=== PATIENT | male | born 1970 | race Caucasian/White ===

== ENCOUNTER 2024-11-26 11:54 | Emergency (ER) | payer OTHER, SELFPAY ==
[2024-11-26 12:19] VITALS: BP 148/91; PULSE 73; RESP 14; TEMP 36.5; O2SAT 96; BMI 34.9
[2024-11-26 12:42] LABS: Appearance Urine Cloudy (Clear); Bilirubin Urine Negative (Negative); Blood Urine Negative (Negative); Color Urine Dark yellow (Yellow); Glucose Urine Negative (Negative); Ketones Urine 1+ (Negative); Leukocyte Esterase Urine Negative (Negative); Nitrite Urine Negative (Negative); Protein Urine Negative (Negative); Specific Gravity Urine >= 1.030 (1.000-1.030); Urobilinogen Urine 0.2 (0.2-1.0)
--- NOTE | 2024-11-26 12:54 | ED.GENADULT ---
HPI - General Adult General Chief complaint: Urogenital Problems, Male Stated complaint: Blood in urine Time Seen by Provider: 11/26/24 12:11 Source: patient Mode of arrival: ambulatory Limitations: no limitations History of Present Illness HPI narrative: 54-year-old male coming in today concerned about blood in his urine. Patient states that he noticed it approximately 3 days ago, spots of red in his urine. He states that for several months he has had a mild discomfort in the suprapubic region. He denies any dysuria, increased urinary frequency or urgency. He denies difficulty starting or stopping his stream. Denies any systemic symptoms such as fevers or chills. Past medical history significant for obesity, hyperlipidemia, psoriasis, hypertension. No family history of bladder cancer or kidney cancer. States that father had prostate cancer when he was 63. Related Data Home Medications ?Medication ?Instructions ?Recorded ?Confirmed adalimumab-bwwd 40 mg/0.8 mL 40 mg subcut Q2W 11/26/24 11/26/24 subcutaneous auto-injector atorvastatin 10 mg tablet 10 mg PO QPM 11/26/24 11/26/24 clobetasol 0.05 % topical cream 1 applic topical BID 11/26/24 11/26/24 losartan 100 mg tablet (Cozaar) 100 mg PO DAILY 11/26/24 11/26/24 metformin 500 mg tablet 1,000 mg PO DAILY 11/26/24 11/26/24 Allergies Allergy/AdvReac Type Severity Reaction Status Date / Time No Known Drug Allergies Allergy Verified 11/26/24 12:15 Review of Systems Status of ROS: Reports: 10 or more systems reviewed and unremarkable except as noted in History and below PFSH PFS Social History Smoking Status: Never smoker Do you use any of these nicotine containing products: None How often do you have a drink containing alcohol: monthly or less AUDIT-C Alcohol total score: 1 Non-prescribed substance use: former substance user Non-prescribed substance use details: thc Exam Narrative: Exam Narrative: Overweight, well-developed patient in no acute distress. Alert and oriented. Answers questions appropriately. Mood and affect are appropriate. Thoughts are goal oriented and rational. No tangential or magical thinking noted. Patient speaks in full sentences without needing to catch his breath. HEENT: Normocephalic atraumatic. Pupils are equally round reactive to light. Extraocular muscles are intact. Conjunctivae are moist without any icterus noted. Moist mucous membranes. Cardiovascular: Heart is regular rate and rhythm S1 and S2 are present without any murmurs. Lungs: Clear to auscultation bilaterally no wheezes rhonchi or rales are appreciated. Patient takes deep breaths without any discomfort. Abdomen: Soft and nontender nondistended with normal bowel sounds. No suprapubic discomfort. Extremities: Bilateral lower extremities are without edema. Skin: Well perfused without any obvious rashes : Deferred. Const: Vital Signs, click to edit/add: Vital Signs - 24 hr 11/26/24 12:19 Temperature 97.7 F Pulse Rate [Pulse Oximeter] 73 Respiratory Rate 14 Blood Pressure [Ri t Upper Arm] 148/91 H Pulse Oximetry 96 Oxygen Delivery Me thod Room Air Course Course ED Course: CBCs unremarkable. Chemistries are unremarkable. UA shows evidence of dehydration, no blood. Vital Signs Vital signs: Initial Vital Signs Temperature 97.7 F 11/26/24 12:19 Temperature Source Temporal Artery Scan 11/26/24 12:19 Pulse Rate 73 11/26/24 12:19 Pulse Rhythm Regular 11/26/24 12:19 Respiratory Rate 14 11/26/24 12:19 Blood Pressure 148/91 H 11/26/24 12:19 Blood Pressure Mean 110 H 11/26/24 12:19 Blood Pressure Position Sitting 11/26/24 12:19 Pulse Oximetry 96 11/26/24 12:19 Oxygen Delivery Method Room Air 11/26/24 12:19 Vital Signs Temperature 97.7 F 11/26/24 12:19 Pulse Rate 73 11/26/24 12:19 Respiratory Rate 14 11/26/24 12:19 Blood Pressure 148/91 H 11/26/24 12:19 Pulse Oximetry 96 11/26/24 12:19 Oxygen Delivery Method Room Air 11/26/24 12:19 Temperature 97.7 F 11/26/24 12:19 Pulse Rate 73 11/26/24 12:19 Respiratory Rate 14 11/26/24 12:19 Blood Pressure 148/91 H 11/26/24 12:19 Pulse Oximetry 96 11/26/24 12:19 Oxygen Delivery Method Room Air 11/26/24 12:19 Medical Decision Making MDM Narrative Medical decision making narrative: 54-year-old male with specks of blood in his urine, no blood visualized in the UA today. Recommend he follow up with primary care as needed. Lab Data Lab results reviewed: Yes I reviewed the patient's lab results Labs: Lab Results 11/26/24 11/26/24 Range/Units 12:27 13:25 WBC 5.43 (4.50-11.00) K/uL RBC 4.87 (4.30-5.90) m/uL Hgb 15.3 (13.5-17.5) gm/dL Hct 44.8 (37.0-53.0) % MCV 92 (80-100) fL MCH 31 (26-34) pg MCHC 34 (32-36) gm/dL RDW Coeff of Suzanne 11.9 (11.5-15.5) % Plt Count 224 (140-440) K/uL Neut % (Auto) 48.1 (42.0-72.0) % Lymph % (Auto) 37.4 (20-44) % [place] % (Auto) 9.2 (0.0-11.0) % Eos % (Auto) 4.4 (0.0-7.0) % Baso % (Auto) 0.7 (0.0-3.0) % Neut # (Auto) 2.61 (1.7-7.0) K/uL Lymph # (Auto) 2.03 (0.90-2.90) K/uL [place] # (Auto) 0.50 (0.00-0.90) K/UL Eos # (Auto) 0.24 (0.00-0.50) K/uL Baso # (Auto) 0.04 (0.00-0.30) K/uL Abs Immat Gran (auto) 0.01 (0.00-0.30) K/uL Imm/Tot Granulo (auto) 0.2 % Sodium 142 (135-149) mmol/L Potassium 4.4 (3.6-5.1) mmol/L Chloride 105 (96-114) mmol/L Carbon Dioxide 28 (20-32) mmol/L Anion Gap 9 (7-15) mEq/L BUN 29 (7-30) mg/dL Creatinine 1.3 (0.5-1.5) mg/dL Estimated Creat Clear 68.63 Estimated GFR 66 ml/min Glucose 107 (60-115) mg/dL Calcium 9.4 (8.4-10.6) mg/dL C-Reactive Protein 1.3 H (0.5-1.0) mg/dL Urine Color Dark yellow (Yellow) Urine Appearance Cloudy A (Clear) Urine pH 6.0 (5.0-8.5) Ur Specific [place] >= 1.030 (1.000-1.030) Urine Protein Negative (Negative) Urine Glucose (UA) Negative (Negative) Urine Ketones 1+ A (Negative) Urine Blood Negative (Negative) Urine Nitrite Negative (Negative) Urine Bilirubin Negative (Negative) Urine Urobilinogen 0.2 (0.2-1.0) Ur Leukocyte Esterase Negative (Negative) Urine RBC 0-2 (0-2) Urine WBC 0-2 (0-5) Ur Squamous Epith Cells None (None-Few) Amorphous Sediment Moderate A (None) Urine Bacteria None (None) Urine Mucus Few A (None) Discharge Plan Discharge Clinical Impression: Hematuria Patient Disposition: Home, Self-Care Condition: Stable Additional Instructions: Recommend you follow-up with your primary care provider and discuss doing a prostate exam if they feel that this is an appropriate next step. No evidence of blood found in the urine today. Continue to monitor. Recommend you follow-up with a urologist for next steps if you continue to see blood in the urine. Prescriptions: No Action adalimumab-bwwd 40 mg/0.8 mL auto-injector 40 mg subcut Q2W atorvastatin 10 mg tablet 10 mg PO QPM clobetasol 0.05 % cream 1 applic topical BID losartan [Cozaar] 100 mg tablet 100 mg PO DAILY metformin 500 mg tablet 1,000 mg PO DAILY Stand Alone Forms: [place] [employer] Info Instructions
[2024-11-26 12:57] LABS: Amorphous Sediment Urine Moderate; Mucus Urine Few; RBC Urine 0-2 (0-2); WBC Urine 0-2 (0-5)
[2024-11-26 13:30] LABS: Basophils Absolute Auto 0.04 K/uL (0.00-0.30); Basophils Percent Auto 0.7 % (0.0-3.0); Eosinophils Absolute Auto 0.24 K/uL (0.00-0.50); Eosinophils Percent Auto 4.4 % (0.0-7.0); Hematocrit 44.8 % (37.0-53.0); Hemoglobin* 15.3 gm/dL (13.5-17.5); Immature Granulocytes Abs Auto 0.01 K/uL (0.00-0.30); Immature Granulocytes Pct Auto 0.2 %; Lymphocytes Absolute Auto 2.03 K/uL (0.90-2.90); Lymphocytes Percent Auto 37.4 % (20-44); Mean Corpuscular HGB Conc 34 gm/dL (32-36); Mean Corpuscular Hemoglobin 31 pg (26-34); Mean Corpuscular Volume 92 fL (80-100); Monocytes Percent Auto 9.2 % (0.0-11.0); Neutrophils Absolute Auto 2.61 K/uL (1.7-7.0); Neutrophils Percent Auto 48.1 % (42.0-72.0); Platelet Count* 224 K/uL (140-440); RDW Coefficient of Variation % 11.9 % (11.5-15.5); Red Blood Count 4.87 m/uL (4.30-5.90); Slide Review Reflex No; White Blood Count* 5.43 K/uL (4.50-11.00)
[2024-11-26 13:59] LABS: Chloride* 105 mmol/L (96-114); Sodium* 142 mmol/L (135-149)
[2024-11-26 14:00] LABS: Potassium* 4.4 mmol/L (3.6-5.1)
[2024-11-26 14:03] LABS: Anion Gap 9 mEq/L (7-15); Blood Urea Nitrogen* 29 mg/dL (7-30); Calcium* 9.4 mg/dL (8.4-10.6); Carbon Dioxide* 28 mmol/L (20-32); Creatinine* 1.3 mg/dL (0.5-1.5); Est. Creatinine Clearance* 68.63; Estimated Glomerular Filt Rate 66 ml/min; Glucose* 107 mg/dL (60-115)
[2024-11-26 14:06] LABS: C Reactive Protein* 1.3 mg/dL (0.5-1.0)
[2024-11-26 14:25] VITALS: BP 132/74; PULSE 68; RESP 14; TEMP 36.5
== END 2024-11-26 14:27 | disposition home or self-care (01) ==
LOC: ED 13:01
PROVIDERS: Emergency Provider Family Medicine
DX: R31.9 Hematuria, unspecified (principal)
CPT/HCPCS: 36415; 80048; 81001; 85025; 86140; 87086; 99283; 99284